=== PATIENT | male | born 2000 | race Caucasian/White ===

== ENCOUNTER 2022-04-25 17:54 | Emergency (ER) | payer SELFPAY ==
[~2022-04-25] VITALS: Ht 160 cm; Wt 64.6 kg
[2022-04-25 17:56] VITALS: BP 149/72
--- NOTE | 2022-04-25 20:50 | NUR ---
Radames elizondo in [facility] - 04/25/22 at 2051 by PER EBONIE AT 2031
--- NOTE | 2022-04-25 20:50 | NUR ---
PT ELOPED AT 2029, ER REGISTRATION WAS NOTIFIED
== END 2022-04-25 20:30 | disposition left against medical advice (07) ==
LOC: MED 17:54
DX: R21 Rash and other nonspecific skin eruption (principal); R19.7 Diarrhea, unspecified; R11.0 Nausea
CPT/HCPCS: 93005; 99283